=== PATIENT | female | born 2000 | race Caucasian/White ===

== ENCOUNTER 2021-11-02 22:22 | Emergency (ER) | payer OTHER, SELFPAY ==
--- NOTE | 2021-11-02 22:47 | ED.GENADULT ---
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 Patient stated that ever since she turn 14-year-old gets episodes of dizziness and generalized weakness she think she has anemia due to malnutrition. Patient declined any loss of blood, patient get her. Regularly usually stays for 4-5 days no heavy bleeding. Patient otherwise declined any chest pain, SOB, abdominal pain, or visual problems. Related Data Previous Rx's Medication Instructions Recorded ferrous sulfate 325 mg (65 mg 325 mg PO DAILY #14 tabs 11/03/21 iron) tablet meclizine 25 mg tablet 25 mg PO BID PRN dizziness #20 tabs 11/03/21 Allergies Allergy/AdvReac Type Severity Reaction Status Date / Time No Known Allergies Allergy Verified 11/02/21 22:46 Review of Systems Review of Systems: All other systems are reviewed and are negative Constitutional: Reports as per HPI and Reports no additional constitutional complaints Eyes: Reports as per HPI and Reports no additional eye complaints Reports system reviewed and no additional complaints, except as documented Cardiovascular: Reports as per HPI and Reports no additional cardiovascular complaints Respiratory: Reports as per HPI and Reports no additional respiratory complaints Gastrointestinal: Reports as per HPI and Reports no additional gastrointestinal complaints Genitourinary: Reports no additional female genitourinary complaints Musculoskeletal: Reports no additional musculoskeletal complaints Skin/Breast: Reports system reviewed and no additional complaints, except as docu Psychiatric: Reports no additional psychiatric complaints Endocrine: Reports no additional endocrine complaints Hematologic/Lymphatic: Reports no additional hematologic/lymphatic complaints Allergic/Immunologic: Reports no additional allergic/immunologic complaints Reports system reviewed and no additional complaints, except as documented and Reports Abnormal speech present [facility] Social History Social History Alcohol intake: never Patient Tobacco Use Status: Never used Tobacco Use of substances other than those prescribed or required for medical reasons: No Advance Directives: No Advance Directives Information Provided: No Physical Exam ED Vital Signs: Vital Signs - 24 hr 11/02/21 22:55 11/02/21 23:00 Temperature 98.3 F 98.3 F Pulse Rate 93 90 Respiratory Rate 18 18 Blood Pressure 112/80 112/80 Pulse Oximetry 100 100 Oxygen Delivery Method Room Air Room Air BMI result Body Mass Index 22.3 Vital signs have been reviewed as appeared to be correct. Blood pressure normal. Heart rate normal. Respiration rate normal. Temperature normal. Oxygen saturation normal. Appearance: Alert. Oriented X3. No acute distress. Head: Normal external exam. Normocephalic. Atraumatic. No Wolff signs noted. No raccoon eyes noted Eyes: PERRLA. EOMI. Conjunctiva and sclera normal. Eyelids normal. ENT: TM's Normal. Pharynx normal. Uvula midline. Moist mucous membranes. No trismus noted. No drooling noted. No muffled voice noted. Neck: Normal inspection. Neck supple. FROM. No adenopathy. Thyroid Normal. No meningeal signs. No neck mass noted. CVS: Normal heart rate and rhythm. Heart sound normal. No murmurs noted. Pulses normal throughout. Respiratory: No respiratory distress. Painless inspiration. Breath sounds normal. No wheezes/rales/rhonchi noted. Chest nontender. No accessory muscle usage noted or decreased air movement noted. Abdomen: Soft and nontender. Bowel sounds normal in all 4 quadrants. No distention noted. No organomegaly noted. No visible injury noted. Back: No CVA tenderness. Full range of motion noted. Skin: Skin warm and dry. Normal skin color. Normal skin turgor. No rashes/lesions/lacerations noted. Extremities: No lower extremity edema. Extremities exhibit normal range of motion. Extremities nontender. Neuro: Oriented X 3. Cranial nerve exam: II-XII are grossly intact No motor deficit. No sensory deficit. Reflexes normal. Course Course Course Narrative: 21-year-old female came in with symptoms of dizziness and generalized weakness for many years on and off, patient's symptoms could be due to mild anemia patient was instructed to follow-up with his PCP for further management of her anemia. Medical Decision Making Lab Data Lab results reviewed: Yes I reviewed the patient's lab results. Result diagrams: 11/02/21 23:40 11/03/21 00:02 Labs: Lab Results 11/02/21 11/03/21 11/03/21 Range/Units 23:40 00:02 00:42 WBC 12.2 H (4.8-10.8) X10*3/uL RBC 4.49 (4.20-5.50) X10*6/uL Hgb 9.9 L (12.0-16.0) g/dl Hct 33.7 L (37.0-47.0) % MCV 75.1 L (80.0-98.0) fL MCH 22.0 L (27.0-33.0) pg MCHC 29.4 L (31.0-35.0) g/dl RDW 14.9 (11.0-16.0) % Plt Count 436 H (160-400) X10*3/uL MPV 9.8 (9.4-12.3) fL Immature Gran % (Auto) 0.2 (0.0-0.4) % Neut % (Auto) 66.3 (45-73) % Lymph % (Auto) 27.8 (20-40) % [place] % (Auto) 4.8 (2-11) % Eos % (Auto) 0.7 (0-4) % Baso % (Auto) 0.2 (0-2) % Lymph # (Auto) 3.4 (1.2-4.9) X10*3/uL [place] # (Auto) 0.6 (0.1-1.2) X10*3/uL Eos # (Auto) 0.1 (0.0-0.4) X10*3/uL Baso # (Auto) 0.0 (0.0-0.2) X10*3/uL Abs Immat Gran (auto) 0.02 (0.00-0.03) X10*3/uL Absolute Neuts (auto) 8.1 (2.0-8.3) x10*3/uL Absolute Nucleated RBC 0.000 (0.0-0.012) X10*3/uL Nucleated RBC % (auto) 0.0 (0.0-0.2) /100WBC Sodium 140 (135-145) mmol/L Potassium 3.7 (3.3-5.1) mmol/L Chloride 106 (96-108) mmol/L Carbon Dioxide 23 (22-29) mmol/L Anion Gap 15 (12-20) BUN 10 (9-16) mg/dL Creatinine 0.68 (0.5-1.4) mg/dL Estim Creat Clear Calc 113.0 Estimated GFR > 60 Random Glucose 91 (60-115) mg/dL Calcium 9.2 (8.4-10.2) mg/dL Urine Color Yellow Urine Appearance Clear Urine pH 7.0 (5.0-9.0) Ur Specific [place] 1.020 (1.005-1.025) Urine Protein Negative (Neg-Trace) mg/dL Urine Glucose (UA) Negative (Negative) mg/dL Urine Ketones Negative (Negative) mg/dL Urine Blood Negative (Negative) Urine Nitrite Negative (Negative) Ur Leukocyte Esterase Small (1+) H (Negative) Urine RBC 0-2 (0-2) /HPF Urine WBC 6-10 H (0-5) /HPF Ur Squamous Epith Cells 3-5 (0-2) /HPF Urine Bacteria 1+ (None Seen) Hyaline Casts 0-2 (0-2) /LPF Urine Test (NEGATIVE) 11/03/21 Range/Units 00:42 WBC (4.8-10.8) X10*3/uL RBC (4.20-5.50) X10*6/uL Hgb (12.0-16.0) g/dl Hct (37.0-47.0) % MCV (80.0-98.0) fL MCH (27.0-33.0) pg MCHC (31.0-35.0) g/dl RDW (11.0-16.0) % Plt Count (160-400) X10*3/uL MPV (9.4-12.3) fL Immature Gran % (Auto) (0.0-0.4) % Neut % (Auto) (45-73) % Lymph % (Auto) (20-40) % [place] % (Auto) (2-11) % Eos % (Auto) (0-4) % Baso % (Auto) (0-2) % Lymph # (Auto) (1.2-4.9) X10*3/uL [place] # (Auto) (0.1-1.2) X10*3/uL Eos # (Auto) (0.0-0.4) X10*3/uL Baso # (Auto) (0.0-0.2) X10*3/uL Abs Immat Gran (auto) (0.00-0.03) X10*3/uL Absolute Neuts (auto) (2.0-8.3) x10*3/uL Absolute Nucleated RBC (0.0-0.012) X10*3/uL Nucleated RBC % (auto) (0.0-0.2) /100WBC Sodium (135-145) mmol/L Potassium (3.3-5.1) mmol/L Chloride (96-108) mmol/L Carbon Dioxide (22-29) mmol/L Anion Gap (12-20) BUN (9-16) mg/dL Creatinine (0.5-1.4) mg/dL Estim Creat Clear Calc Estimated GFR Random Glucose (60-115) mg/dL Calcium (8.4-10.2) mg/dL Urine Color Urine Appearance Urine pH (5.0-9.0) Ur Specific [place] (1.005-1.025) Urine Protein (Neg-Trace) mg/dL Urine Glucose (UA) (Negative) mg/dL Urine Ketones (Negative) mg/dL Urine Blood (Negative) Urine Nitrite (Negative) Ur Leukocyte Esterase (Negative) Urine RBC (0-2) /HPF Urine WBC (0-5) /HPF Ur Squamous Epith Cells (0-2) /HPF Urine Bacteria (None Seen) Hyaline Casts (0-2) /LPF Urine Test NEGATIVE (NEGATIVE) Discharge Plan Discharge Clinical Impression: Anemia, Vertigo Patient Disposition: Home, Self-Care Instructions: Anemia (ED) Prescriptions: New meclizine 25 mg tablet 25 mg PO BID PRN (Reason: dizziness) Qty: 20 0RF ferrous sulfate 325 mg (65 mg iron) tablet 325 mg PO DAILY Qty: 14 0RF Referrals: Physician,None [Primary Care Provider] -
[2021-11-02 22:55] VITALS: BP 112/80; BP 136/90; PULSE 88; PULSE 93; RESP 18; TEMP 36.8; O2SAT 100; O2SAT 99; BMI 22.3
[2021-11-02 23:00] VITALS: BP 112/80; PULSE 90; RESP 18; TEMP 36.8; O2SAT 100
[2021-11-02] MEDS: Meclizine HCl 25 MG TABLET PO (23:25)
[2021-11-02] MEDS: Acetaminophen 325 MG TABLET 650 MG PO (23:25)
[2021-11-02 23:45] LABS: MANUAL DIFF FLAG NO
[2021-11-02 23:46] LABS: Basophils Percent Auto 0.2 % (0-2); Eosinophils Absolute Auto 0.1 X10*3/uL (0.0-0.4); Eosinophils Percent Auto 0.7 % (0-4); Hematocrit 33.7 % (37.0-47.0); Hemoglobin 9.9 g/dl (12.0-16.0); Imm Gran Abs Auto 0.02 X10*3/uL (0.00-0.03); Imm Gran Pct Auto 0.2 % (0.0-0.4); Lymphocytes Absolute Auto 3.4 X10*3/uL (1.2-4.9); Lymphocytes Percent Auto 27.8 % (20-40); Mean Corpuscular HGB Conc 29.4 g/dl (31.0-35.0); Mean Corpuscular Volume 75.1 fL (80.0-98.0); Mean Platelet Volume 9.8 fL (9.4-12.3); Monocytes Absolute Auto 0.6 X10*3/uL (0.1-1.2); Monocytes Percent Auto 4.8 % (2-11); Neutrophils Absolute Auto 8.1 x10*3/uL (2.0-8.3); Neutrophils Percent Auto 66.3 % (45-73); Platelet Count 436 X10*3/uL (160-400); Red Blood Count 4.49 X10*6/uL (4.20-5.50); Red Cell Distribution Width 14.9 % (11.0-16.0); White Blood Count 12.2 X10*3/uL (4.8-10.8)
[2021-11-03 00:29] LABS: Anion Gap 15 (12-20); Blood Urea Nitrogen 10 mg/dL (9-16); Calcium 9.2 mg/dL (8.4-10.2); Carbon Dioxide 23 mmol/L (22-29); Chloride 106 mmol/L (96-108); Estimated Glomerular Filt Rate > 60; Glucose Random 91 mg/dL (60-115); Potassium 3.7 mmol/L (3.3-5.1); Sodium 140 mmol/L (135-145)
[2021-11-03 00:50] LABS: Appearance Urine Clear; Color Urine Yellow; Glucose Urine UA Negative (Negative); Leukocyte Esterase Urine Small (1+) (Negative); Nitrite Urine Negative (Negative); UMIC TRIGGER UACC YES; Urine Blood Negative (Negative); Urine Ketones Negative (Negative); Urine Protein Negative (Neg-Trace)
[2021-11-03 00:53] LABS: UPreg QC Valid YES; Urine Pregnancy NEGATIVE (NEGATIVE)
[2021-11-03 00:55] LABS: Bacteria Urine 1+ (None Seen); Hyaline Casts Urine 0-2 /LPF (0-2); RBC Urine 0-2 /HPF (0-2); UACC Culture Trigger YES
--- NOTE | 2021-11-03 02:35 | PC.NURSE ---
Upon discharge, pt. stated to this RN that she resides at the [facility] in [place], [place] and that she wasn't sure how to call them or coordinate a ride home. Pt. asked this RN to call the [facility] for her. This RN called and spoke to overnight program manager slp who stated that he will be sending a ride now to come and pick her up.
== END 2021-11-03 03:37 | disposition home or self-care (01) ==
PROVIDERS: Emergency Provider Emergency Medicine
DX: D64.9 Anemia, unspecified (principal); R42 Dizziness and giddiness; R53.1 Weakness
CPT/HCPCS: 36415; 80048; 81001; 81025; 85025; 87086; 99283; 99284

== ENCOUNTER 2022-03-28 16:45 | Emergency (ER) | payer OTHER, SELFPAY ==
[2022-03-28 17:16] VITALS: BP 110/77; PULSE 96; RESP 16; TEMP 36.8; O2SAT 100; BMI 21.2
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
[2022-03-28 18:41] LABS: MANUAL DIFF FLAG NO
[2022-03-28 18:42] LABS: Basophils Absolute Auto 0.1 X10*3/uL (0.0-0.2); Basophils Percent Auto 0.6 % (0-2); Eosinophils Absolute Auto 0.2 X10*3/uL (0.0-0.4); Eosinophils Percent Auto 1.6 % (0-4); Hematocrit 35.4 % (37.0-47.0); Hemoglobin 10.8 g/dl (12.0-16.0); Imm Gran Abs Auto 0.02 X10*3/uL (0.00-0.03); Imm Gran Pct Auto 0.2 % (0.0-0.4); Lymphocytes Absolute Auto 3.1 X10*3/uL (1.2-4.9); Lymphocytes Percent Auto 32.9 % (20-40); Mean Corpuscular HGB Conc 30.5 g/dl (31.0-35.0); Mean Corpuscular Hemoglobin 23.2 pg (27.0-33.0); Mean Corpuscular Volume 76.1 fL (80.0-98.0); Mean Platelet Volume 9.9 fL (9.4-12.3); Monocytes Absolute Auto 0.6 X10*3/uL (0.1-1.2); Monocytes Percent Auto 6.4 % (2-11); Neutrophils Absolute Auto 5.6 x10*3/uL (2.0-8.3); Neutrophils Percent Auto 58.3 % (45-73); Platelet Count 353 X10*3/uL (160-400); Red Blood Count 4.65 X10*6/uL (4.20-5.50); Red Cell Distribution Width 14.7 % (11.0-16.0); White Blood Count 9.5 X10*3/uL (4.8-10.8)
[2022-03-28 18:49] LABS: Appearance Urine Cloudy; Color Urine Yellow; Glucose Urine UA Negative (Negative); Leukocyte Esterase Urine Small (1+) (Negative); Nitrite Urine Negative (Negative); Specific Gravity - Urine >= 1.030 (1.005-1.025); UMIC TRIGGER UACC YES; Urine Blood Negative (Negative); Urine Ketones Trace mg/dL (Negative); Urine Protein Trace mg/dL (Neg-Trace)
[2022-03-28 18:50] LABS: UPreg QC Valid YES; Urine Pregnancy NEGATIVE (NEGATIVE)
[2022-03-28 18:53] LABS: Bacteria Urine 4+ (None Seen); RBC Urine 0-2 /HPF (0-2); UACC Culture Trigger YES
[2022-03-28 19:01] LABS: Alanine Aminotransferase 8 U/L (0-31); Albumin Level 4.4 g/dL (3.5-5.0); Alkaline Phosphatase 68 U/L (39-117); Anion Gap 13 (12-20); Aspartate Amino Transferase 14 U/L (5-31); Bilirubin Direct < 0.2 mg/dL (0.0-0.5); Bilirubin Total 0.2 mg/dL (0.0-1.0); Blood Urea Nitrogen 12 mg/dL (9-16); Calcium 9.5 mg/dL (8.4-10.2); Carbon Dioxide 22 mmol/L (22-29); Chloride 108 mmol/L (96-108); Creatinine Clr Calc Pharmacy 105.2; Estimated Glomerular Filt Rate > 60; Glucose Random 83 mg/dL (60-115); Magnesium 2.1 mg/dL (1.6-2.6); Potassium 4.2 mmol/L (3.3-5.1); Sodium 139 mmol/L (135-145); Total Protein 7.5 g/dL (6.5-8.0)
[2022-03-28 19:14] LABS: HCG Quantitative < 2 mIU/mL
[2022-03-28] MEDS: cefTRIAXone sodium 500 MG, Lidocaine HCl 1 % MPF 1 ML IM (23:09)
[2022-03-28] MEDS: metroNIDAZOLE 500 MG TABLET PO (23:09)
[2022-03-28] MEDS: Doxycycline Monohydrate 100 MG CAPSULE PO (23:09)
[2022-03-28] MEDS: levonorgestreL 1.5 MG TABLET PO (23:22)
--- NOTE | 2022-03-29 02:54 | PC.NURSE ---
SHANNAN Kit picked up by [facility] 03/29/22 0243.
[2022-03-29 03:05] LABS: CT PCR NOT DETECTED (Not Detect.); NG PCR NOT DETECTED (Not Detect.)
[2022-03-29 10:58] LABS: BV Int Neg Control Negative (Negative); BV Int Pos Control Positive (Positive)
[2022-03-30 06:35] LABS: Syphilis Screen Nonreactive (Nonreactive)
[2022-03-30 08:23] LABS: HBS Num1 0.46 mIU/mL (0-7.99); HBc Num1 0.06 S/CO (0.00-0.79); HBsAGNum1 0.26 S/CO (0.00-0.99); HIV AB/AG Nonreactive (Nonreactive); HIV Num 1 0.07 S/CO (0.00-0.99); Hepatitis A Antibody IgM 0.37 Index (0-0.79); Hepatitis B Core Antibody Nonreactive (Nonreactive); Hepatitis B Surface Antigen Negative (Negative); ~HepC Num1 0.08 S/CO (0.00-0.79); ~Hepatitis A Antibody IgM Nonreactive (Nonreactive); ~Hepatitis B Surface Antibody NONREACTIVE (Nonreactive); ~Hepatitis C Antibody Nonreactive (Nonreactive)
== END 2022-03-28 23:26 | disposition home or self-care (01) ==
PROVIDERS: Physician Assistant; Emergency Provider Emergency Medicine
DX: N76.0 Acute vaginitis (principal); T76.21XA Adult sexual abuse, suspected, initial encounter; Z20.2 Contact with and (suspected) exposure to infections with a predominantly sexual mode of transmission; Z79.899 Other long term (current) drug therapy
CPT/HCPCS: 0353U; 36415; 80048; 80076; 81001; 81025; 83735; 84702; 85025; 86704; 86706; 86709; 86780; 86803; 87086; 87088; 87186; 87340; 87389; 87480; 87510; 87660; 96372; 99284; J0696

== ENCOUNTER 2024-11-15 10:01 | Outpatient (AMB) | payer OTHER, SELFPAY ==
[2024-11-15 10:21] VITALS: BP 113/61; PULSE 79; TEMP 36.7; O2SAT 100
--- NOTE | 2024-11-15 10:21 | MHC.PC.OV ---
Vital Signs 11/15/24 10:21 Weight 118 lb BP 113/61 Blood Pressure Location Rt brachial Position Sitting Pulse 79 Pulse Source Pulse Oximeter Temp 98.0 F Temp Source Oral Pulse Oximetry (%) 100 Oxygen Delivery Method Room Air Intake Visit Reasons: ? UTI -rescheduled from 11/07 Accompanied by: Self / Same As Patient Allergies No Known Allergies Allergy (Verified 11/15/24 10:21) Medication List - Last Reconciled 11/15/24 by Chapito Pantoja MD ferrous sulfate 325 mg PO DAILY meclizine 25 mg PO BID PRN Tobacco use date assessed: 11/15/24 Dental Screening Dental Screen Date: 11/15/24 Did you have a dental visit in the last 12 months?: No HPI HPI Comments History of Present Illness Details History of Present Illness The patient is a 24-year-old female presenting with concerns regarding a dislocated intrauterine device (IUD) and associated urinary tract infection. Dislocated Intrauterine Device (IUD): - The patient reports that the IUD was dislocated, which was identified approximately one month ago during a visit to urgent care. - The dislocation led to an infection, and the patient was treated with antibiotics and probiotics. - An ultrasound was performed at [facility] to assess the position of the IUD. Urinary Tract Infection: - The patient experienced a urinary tract infection secondary to the dislocated IUD, as diagnosed at urgent care. - Treatment included antibiotics, and the patient reports no current symptoms of active infection. Review of Systems - Genitourinary: Reports previous urinary tract infection, denies current symptoms of infection. - Reproductive: Reports dislocated IUD, denies active bleeding. 10-point ROS reviewed and negative except as noted in HPI Past Medical History anemia Health Maintenance - Referral to [facility] for IUD management and further evaluation. Physical Exam General: Well-appearing, in no acute distress. Vital signs: Within normal limits. HEENT: Normocephalic, atraumatic. PERRLA, EOMI. Conjunctiva clear, sclera anicteric. Oropharynx clear, mucous membranes moist. TMs intact bilaterally. Neck: Supple, no lymphadenopathy, no thyromegaly, no JVD or carotid bruits. Cardiovascular: RRR, normal S1/S2, no murmurs, rubs, or gallops. Peripheral pulses 2+ and symmetric. No edema. Respiratory: Lungs clear to auscultation bilaterally, no wheezes, rales, or rhonchi. Normal effort. Abdomen: Soft, non-tender, non-distended. Normoactive bowel sounds. No hepatosplenomegaly, no masses. MSK: Full range of motion, no joint swelling or deformity. Normal gait. Skin: Warm, dry, intact. No rashes, lesions, or pallor. Neuro: Alert and oriented x3. Cranial nerves II-XII intact. Strength 5/5 throughout. Sensation intact. Reflexes 2+ symmetric. Normal coordination and gait. Psych: Appropriate mood and affect. Normal judgment and insight. exam deferred Plan 1. Dislocated Intrauterine Device (Iud) - Referral to [facility] for evaluation and management of the dislocated IUD, including potential removal or repositioning. - Ultrasound imaging to assess the current position of the IUD and ensure no perforation of the uterus. 2. Urinary Tract Infection - Monitor for any recurrence of symptoms and ensure completion of antibiotic course. - Follow-up with primary care for any further urinary symptoms. Discussion Notes I discussed with the patient the need for a referral to an [facility] for the management of her dislocated IUD. We talked about the importance of ultrasound imaging to assess the IUD's position and prevent complications such as uterine perforation. I also advised her to monitor for any recurrence of urinary symptoms and to complete her antibiotic course. Follow-up with primary care was recommended to ensure comprehensive care. Patient was informed and verbally consented to the use of an ambient scribefor clinic note documentation during this visit. Patient Instructions - Follow up with [facility] for IUD evaluation and management. - Complete the course of antibiotics as prescribed. - Monitor for any symptoms of urinary tract infection and report them to your primary care provider. -ED instructions provided Total time spent caring for the patient today was 30 minutes. This includes time spent before the visit reviewing the chart, time spent documenting, and time spent reviewing laboratory results, diagnostic imaging, medications, performing a medically necessary evaluation, counseling on diagnoses, care coordination, ordering appropriate tests. [facility] Medical History (Updated 11/15/24 @ 11:04 by Chapito Pantoja MD) IUD mechanical complication Family History (Updated 11/15/24 @ 10:30 by Evette Saucedo CMA) Mother Diabetes Father No problems noted. Social History Housing: Apartment Alcohol intake: never Patient Tobacco Use Status: Never used Tobacco service: No Current occupational status: unemployed Cognitive needs: No Hearing needs: No Vision needs: Yes (rx glasses) Female Reproductive History Menstrual Duration of menses: 6-7 days Date of last menstrual period: 11/09/24 Questionnaire PHQ-9 Over the last 2 weeks, how often have you been bothered by any of the following problems? 1. Little interest or pleasure in doing things: not at all 2. Feeling down, depressed, or hopeless: not at all 3. Trouble falling or staying asleep, or sleeping too much: not at all 4. Feeling tired or having little energy: not at all 5. Poor appetite or overeating: not at all 6. Feeling bad about yourself - or that you are a failure or have let yourself or your family down: not at all 7. Trouble concentrating on things, such as reading the newspaper or watching television: not at all 8. Moving or speaking so slowly that other people could have noticed. Or the opposite - being so fidgety or restless that you have been moving around a lot more than usual: not at all 9. Thoughts that you would be better off or of hurting yourself in some way: not at all Total score: 0 Source: Developed by Drs. Brandon Sanon, Gifty Lopez, Tc Bradshaw and colleagues, with an educational barbara from [employer]. Thrive Questionnaire Date Thrive assessed: 11/15/24 I am a: Patient What is your living situation today?: I have a steady place to live Within the past 12 months, did the food you bought not last and you didn't have the money to get more?: Never true Within the past 12 months, did you worry whether your food would run out before you got money to buy more?: Never true Do you have trouble paying for medicines?: No Do you have trouble getting transportation to medical appointments?: No Do you have trouble paying your heating and electricity bill?: No Do you have trouble taking care of your child, family member or friend?: No Do you have trouble with day-to-day activities such as bathing, preparing meals, shopping, managing finances, etc.?: No Are you currently unemployed and looking for a job?: No Are you interested in more education?: No THRIVE Score: 0 AUDIT C Alcohol Use Questionnaire (AUDIT-C) 1. How often do you have a drink containing alcohol?: Monthly or less Total Score: 1 CESAR-7 AMB Questionnaire CESAR-7 Date CESAR - 7 assessed: 11/15/24 Feeling nervous, anxious, or on edge: 0 = Not at all Not being able to stop or control worryin = Not at all Worrying too much about different things: 0 = Not at all Trouble relaxin = Not at all Being so restless that it is hard to sit still: 0 = Not at all Becoming easily annoyed or irritable: 0 = Not at all Feeling afraid as if something awful might happen: 0 = Not at all Total CESAR-7 score (0-4 normal; 5-9 mild; 10-14 moderate; 15-21 severe): 0 Source: Developed by Drs. Brandon Sanon, Gifty Lopez, Tc Bradshaw and colleagues, with an educational barbara from [employer]. Physical exam (Primary Care) Vital Signs: Last Vital Signs Temp 98.0 F 11/15/24 10:21 Pulse 79 11/15/24 10:21 BP 113/61 11/15/24 10:21 Pulse Ox 100 11/15/24 10:21 Oxygen Delivery Method Room Air 11/15/24 10:21 Tobacco/Smoking Status: Tobacco use Status Tobacco use date assessed 11/15/24 11/15/24 10:31 Patient Tobacco Use Status Never used Tobacco 11/15/24 10:31 PHQ-9: PHQ-9 Score PHQ-9: Total score 0 11/15/24 10:45 Thrive Assessment: Date of Thrive Assessment Date Thrive assessed 11/15/24 11/15/24 10:31 Results AMB Urinalysis Dipstick UR Leukocytes Large Last Edit by Evette Saucedo CMA on 11/15/24 10:49 UR Nitrite Negative Last Edit by Evette Saucedo CMA on 11/15/24 10:49 UR Urobilinogen Normal Last Edit by Evette Saucedo CMA on 11/15/24 10:49 UR Protein Trace Last Edit by Evette Saucedo CMA on 11/15/24 10:49 UR Ph 6.0 Last Edit by Evette Saucedo CMA on 11/15/24 10:49 UR Blood Moderate Last Edit by Evette Saucedo CMA on 11/15/24 10:49 UR Specific [place] 1.025 Last Edit by Evette Saucedo CMA on 11/15/24 10:49 UR Ketone Last Edit by Evette Saucedo CMA on 11/15/24 10:49 UR Bilirubin Last Edit by Evette Saucedo CMA on 11/15/24 10:49 UR Glucose Last Edit by Evette Saucedo CMA on 11/15/24 10:49 Results Reviewed Results Reviewed: Laboratory Last Values Urine pH (Clinic) 6.0 11/15/24 10:46 Specific [place] (Clinic) 1.025 11/15/24 10:46 Ur Protein (Clinic) Trace 11/15/24 10:46 Urine Blood (Clinic) Moderate 11/15/24 10:46 Urine Nitrite Negative 11/15/24 10:46 Urobilinogen (Clinic) Normal 11/15/24 10:46 Leukocyte Esterase (Clinic) Large 11/15/24 10:46 Coding Level of Care Code New Pt Level 4 (30949) Diagnoses IUD mechanical complication T83.39XA History of anemia Z86.2 Urinary tract infection N39.0 Assessment & Plan Assessment & Plan (1) IUD mechanical complication: Code(s): T83.39XA - Other mechanical complication of intrauterine contraceptive device, initial encounter Category: Medical (2) History of anemia: Code(s): Z86.2 - Personal history of diseases of the blood and blood-forming organs and certain disorders involving the immune mechanism (3) Urinary tract infection: Code(s): N39.0 - Urinary tract infection, site not specified Plan Orders: Orders AMB Urinalysis Dipstick Today Z13.9 - Encounter for screening, unspecified US transvaginal Today T83.39XA - Other mechanical complication of intrauterine contraceptive device, initial encounter, Z13.9 - Encounter for screening, unspecified US pelvic complete Today T83.39XA - Other mechanical complication of intrauterine contraceptive device, initial encounter, Z13.9 - Encounter for screening, unspecified Complete Blood Count Auto Diff Today Z13.9 - Encounter for screening, unspecified Hemoglobin A1c Today Z13.9 - Encounter for screening, unspecified Hepatitis C Antibody Today Z13.9 - Encounter for screening, unspecified UA CC w/rflx Micro + Cult Today Z13.9 - Encounter for screening, unspecified Comprehensive Met. Panel Today Z13.9 - Encounter for screening, unspecified Hepatitis B Surface Antibody Today Z13.9 - Encounter for screening, unspecified Hepatitis B Surface Antigen Today Z13.9 - Encounter for screening, unspecified HIV Ab/Ag Today Z13.9 - Encounter for screening, unspecified Lipid Panel Today Z13.9 - Encounter for screening, unspecified TSH reflex Free T4 Today Z13.9 - Encounter for screening, unspecified Vitamin B12 and Folate Today Z13.9 - Encounter for screening, unspecified Vitamin D 1,25 dihydroxy Today Z13.9 - Encounter for screening, unspecified Referrals [facility] Referral T83.39XA - Other mechanical complication of intrauterine contraceptive device, initial encounter
== END 2024-11-15 11:39 | disposition home or self-care (01) ==
LOC: HO.HMCFMS 10:02
PROVIDERS: PCP Student in an Organized Health Care Education/Training Program; Visit Provider Student in an Organized Health Care Education/Training Program
DX: T83.39XA Other mechanical complication of intrauterine contraceptive device, initial encounter (principal); Z86.2 Personal history of diseases of the blood and blood-forming organs and certain disorders involving the immune mechanism; N39.0 Urinary tract infection, site not specified

== ENCOUNTER 2024-11-15 10:01 | Outpatient (REF) | payer OTHER, SELFPAY ==
[2024-11-15 18:25] LABS: MANUAL DIFF FLAG NO
[2024-11-15 18:32] LABS: Hematocrit 33.7 % (37.0-47.0); Hemoglobin 9.5 g/dl (12.0-16.0); Imm Gran Abs Auto 0.01 X10*3/uL (0.00-0.03); Imm Gran Pct Auto 0.2 % (0.0-0.4); Lymphocytes Absolute Auto 2.6 X10*3/uL (1.2-4.9); Mean Corpuscular HGB Conc 28.2 g/dl (31.0-35.0); Mean Corpuscular Hemoglobin 20.6 pg (27.0-33.0); Mean Corpuscular Volume 73.1 fL (80.0-98.0); NRBC Abs Auto 0.000 X10*3/uL (0.0-0.012); NRBC Pct Auto 0.0 /100WBC (0.0-0.2); Platelet Count 512 X10*3/uL (160-400); Red Blood Count 4.61 X10*6/uL (4.20-5.50); White Blood Count 5.8 X10*3/uL (4.8-10.8)
[2024-11-15 18:49] LABS: Alanine Aminotransferase 10 U/L (0-31); Albumin Level 4.9 g/dL (3.5-5.0); Alkaline Phosphatase 61 U/L (39-117); Anion Gap 12 (12-20); Aspartate Amino Transferase 25 U/L (5-31); Blood Urea Nitrogen 8 mg/dL (9-16); Calcium 9.7 mg/dL (8.4-10.2); Carbon Dioxide 25 mmol/L (22-29); Chloride 106 mmol/L (96-108); Cholesterol 172 mg/dL (<200); Estimated Glomerular Filt Rate > 60; HDL Cholesterol 57 mg/dL (>40); Potassium 4.9 mmol/L (3.3-5.1); Sodium 138 mmol/L (135-145); Total Protein 8.0 g/dL (6.5-8.0); Triglycerides 72 mg/dL (<150)
[2024-11-15 19:02] LABS: Appearance Urine Clear; Glucose Urine UA Negative (Negative); PH 6.0 (5.0-9.0); Specific Gravity - Urine 1.025 (1.005-1.025); UMIC TRIGGER UACC YES
[2024-11-15 19:15] LABS: Folate 12.6 ng/mL (> or = 4.0); Vitamin B12 726 pg/mL (200-900)
[2024-11-15 19:19] LABS: UACC Culture Trigger YES
[2024-11-16 08:31] LABS: HBS Num1 2.78 mIU/mL (0-7.99); HBsAGNum1 0.59 S/CO (0.00-0.99); HIV Num 1 0.05 S/CO (0.00-0.99); Hepatitis B Surface Antigen Negative (Negative); ~HepC Num1 0.12 S/CO (0.00-0.79); ~Hepatitis B Surface Antibody NONREACTIVE (Nonreactive); ~Hepatitis C Antibody Nonreactive (Nonreactive)
[2024-11-19 23:28] LABS: VITAMIN D (1,25 OH) D3 49 pg/mL; Vit D (1,25-Dihydroxy) Total 49 pg/mL (18-72); Vitamin D (1,25 OH) D2 <8 pg/mL
== END 2024-11-15 10:02 | disposition home or self-care (01) ==
LOC: HO.HKASLDS 10:01
PROVIDERS: PCP Student in an Organized Health Care Education/Training Program; Visit Provider Student in an Organized Health Care Education/Training Program
DX: T83.39XA Other mechanical complication of intrauterine contraceptive device, initial encounter (principal); Z86.2 Personal history of diseases of the blood and blood-forming organs and certain disorders involving the immune mechanism; Z87.440 Personal history of urinary (tract) infections
CPT/HCPCS: 36415; 80053; 80061; 81001; 81003; 82607; 82652; 82746; 83036; 84443; 85025; 86706; 86803; 87086; 87340; 87389; 99202

== ENCOUNTER 2024-11-15 12:59 | Outpatient (REF) | payer OTHER, SELFPAY ==
--- NOTE | ~2024-11-15 | US_ITS ---
EXAMINATION: US PELVIS TRANSABDOMINAL AND TRANSVAGINAL HISTORY: T83.39XA - Other mechanical complication of intrauterine contraceptive device... COMPARISON: There are no prior studies available for comparison. TECHNIQUE: Transabdominal and endovaginal real-time 2D clay-scale ultrasound was performed. FINDINGS: Uterus: The uterus is normal in size, measuring 6.9 x 4.4 x 4.8 cm. Myometrium has a normal echotexture. No fibroids are identified. Endometrium: The endometrial stripe measures 5 mm in thickness. An IUD is noted in the cervix/lower uterine segment. The tip is approximately 3.2 cm from the uterine fundus. Right ovary: The right ovary measures 6.2 x 5.1 x 6.6 cm. Multiple follicles are noted. There is also a 3.2 cm cystic structure with low-level internal echoes. Left ovary: The left ovary measures 3.4 x 3.1 x 2.5 cm. The left ovary is normal in size and echotexture. Pelvic fluid: none. US/US pelvic and transvaginal IMPRESSION: 1. IUD within the cervix/lower uterine segment with the tip approximately 3.2 cm from the uterine fundus. 2. Probable 3.2 cm hemorrhagic right ovarian cyst. Electronically signed by: Brandon Vallecillo MD 11/15/2024 02:25 PM EDT
== END 2024-11-15 13:00 | disposition home or self-care (01) ==
LOC: HO.US 12:59
PROVIDERS: PCP Student in an Organized Health Care Education/Training Program; Visit Provider Student in an Organized Health Care Education/Training Program
DX: T83.39XA Other mechanical complication of intrauterine contraceptive device, initial encounter (principal)
CPT/HCPCS: 76830; 76856

== ENCOUNTER → 2024-11-15 13:07 | Outpatient (BNV) | payer OTHER, SELFPAY | PROVIDERS: PCP Student in an Organized Health Care Education/Training Program; Visit Provider Radiology Diagnostic Radiology | DX: T83.32XA Displacement of intrauterine contraceptive device, initial encounter (principal); N83.291 Other ovarian cyst, right side | CPT/HCPCS: 76830; 76856 ==

== ENCOUNTER 2024-12-03 11:13 | Outpatient (REF) | payer OTHER, SELFPAY ==
--- OUTSIDE RECORDS SUMMARY | 2024-12-03 18:42 | XMS_ITS | Clinical Summary ---
Author Organization [facility] Address [address] [place] [address] Phone Care Team Providers Care Christmas Bell Ringer Name Role Phone Physician, No Pcp Primary Care Provider Unavaila ble Allergies No known active allergies Medications iron,carbonyl-v itamin C 65 mg iron- 125 mg tablet,delayed release (DR/EC) Take 1 tablet by mouth 1 (one) time each day for 14 days. 14 tablet 10/22/2024 Encounters Date Type Department Care Team Description 10/21/2024 9:00 PM EDT - 10/22/2024 1:[address] [facility] Emergency [address] [place] [address] Yola Irby MD Acute UTI (urinary tract infection) (Primary Dx); Malpositioned IUD, initial encounter; Vaginal bleeding; Chronic anemia Discharge Disposition: Home or Self Care from Last 3 Months Medical History Medical History Date Comments Known health problems: none Social History Tobacco Use Types Packs/Day Years Used Date Smoking Tobacco: Never Assessed Comments Unknown Sex and Gender Information Value Date Recorded Sex Assigned at Not on file Legal Sex Female 5:13 PM EDT Gender Identity Not on file Sexual Orientation Not on file Obstetrics History Last Filed Vital Signs Vital Sign Reading Time Taken Comments Blood Pressure 96/54 10/22/2024 12:34 AM EDT Pulse 78 10/22/2024 12:34 AM EDT Temperature 36.8 C (98.2 F) 10/22/2024 12:34 AM EDT Respiratory Rate 16 10/22/2024 12:34 AM EDT Oxygen Saturation 100% 10/22/2024 12:34 AM EDT Inhaled Oxygen Concentration - - Weight 54.4 kg (120 lb) 10/21/2024 5:29 PM EDT Height 162.6 cm (5' 4 ) 10/21/2024 5:29 PM EDT Body Mass Index 20.6 10/21/2024 5:29 PM EDT Plan of Treatment Health Maintenance Due Date Last Done Comments Gonorrhea/Chlamydia Screening 2000 HPV Vaccines (1 - 3-dose series) 04/13/2015 DTaP,Tdap,and Td Vaccines (1 - Tdap) 04/13/2019 Hepatitis B Vaccines (1 of 3 - 19+ 3-dose series) 04/13/2019 Cervical Cancer Screening: P ap Smear 2021 Depression Screening 02/07/2024 COVID-19 Vaccine ( - 2023-2 5 season) 2024 Influenza Vaccine (#1) 2024 HIV Screening 10/21/2024 Hepatitis C Screening 10/21/2024 Social Influencers of Health Screening 10/21/2024 RSV Immunization Adult Patie nts (1 - 1-dose 75+ series) 04/13/2075 HIB Vaccines Aged Out No longer eligi ble based on patient's age to complete this topic Hepatitis A Vaccines Aged Out No long er eligible based on patient's age to complete this topic IPV Vaccines Aged Out No longer eligi ble based on patient's age to complete this topic MMR Vaccines Aged Out No longer eligi ble based on patient's age to complete this topic Meningococcal ACWY Vaccine Aged Out N o longer eligible based on patient's age to complete this topic Meningococcal B Vaccine Aged Out No l onger eligible based on patient's age to complete this topic Pneumococcal Vaccine: Pediat rics (0 to 5 Years) and At-Risk Patients (6 to 49 Years) Aged Out No longer eligible b ased on patient's age to complete this topic RSV Immunization Patients Un ryan 20 months Aged Out No longer eligible b ased on patient's age to complete this topic Varicella Vaccines Aged Out No longer eligible based on patient's age to complete this topic Procedures Procedure Name Priority Date/Time Associated Diagnosis Comments US PELVIS NON OB COMPLETE W TRANSVAGINAL STAT 10/21/2024 11:17 PM EDT POC , URINE DIAGNOSTIC STAT 10/21/2024 10:28 PM EDT SCHULER URINE CULTURE TUBE STAT 10/21/2024 10:27 PM EDT URINALYSIS WITH REFLEX MICROSCOPIC AND CULTURE STAT 10/21/2024 10:27 PM EDT URINALYSIS WITH REFLEX MICROSCOPIC AND CULTURE STAT 10/21/2024 10:27 PM EDT CULTURE URINE STAT 10/21/2024 10:27 PM EDT CBC WITH AUTO DIFFERENTIAL STAT 10/21/2024 6:25 PM EDT COMPREHENSIVE METABOLIC PANEL STAT 10/21/2024 6:25 PM EDT CBC AND DIFFERENTIAL STAT 10/21/2024 6:25 PM EDT from Last 3 Months Results * US Pelvis Non OB Complete w Transvaginal (10/21/2024 11:17 PM EDT) Anatomical Region Laterality Modality Body, Pelvis Ultrasound 10/22/2024 12:4 4 AM EDT Addenda Addendum by Gerard Mckinnon MD PhD on 10/22/2024 12:51 AM EDT ADDENDUM: Receipt of this report by the clinical staff was confirmed with Yola Eden MD on Oct 22, 2024 00:50:00 EDT. This document has been electronically signed by: Enrrique Elizondo on 10/22/2024 00:51:07 Impressions 10/22/2024 12:44 AM EDT 1. Malpositioned IUD. IUD in the lower uterine segment and cervical canal. One of the arms of the IUD may be extraluminal. Please correlate clinically. 2. Multiple simple and complex cystic areas throughout the enlarged right ovary. 3. No evidence of ovarian torsion This document has been electronically signed by: Gerard Mckinnon MD, PHD on 10/22/2024 00:44:12 Narrative 10/22/2024 12:44 AM EDT INDICATION: OTHER US pelvis transabdominal and transvaginal with Doppler Comparison: None provided Findings: Transabdominal scanning performed for overall anatomy. Transvaginal scanning performed for additional detail. Anteverted uterus is 8.3 cm length. Normal myometrium. Endometrium 9 mm thickness. An IUD is in the lower uterine segment and cervical canal. One of the arms of the IUD may be extraluminal. Right ovary 6 x 5 x 6 cm. Multiple simple and complex cystic areas are present within the right ovary. Left ovary 3.9 x 2.8 x 3.4 cm. Normal color Doppler with arterial/venous spectral tracing of both ovaries. No free fluid. Procedure Note Gerard Mckinnon MD PhD - 10/22/2024 INDICATION: OTHER US pelvis transabdominal and transvaginal with Doppler Comparison: None provided Findings: Transabdominal scanning performed for overall anatomy. Transvaginal scanning performed for additional detail. Anteverted uterus is 8.3 cm length. Normal myometrium. Endometrium 9 mm thickness. An IUD is in the lower uterine segment and cervical canal. One of thearms of the IUD may be extraluminal. Right ovary 6 x 5 x 6 cm. Multiple simple and complex cystic areas are present within the right ovary. Left ovary 3.9 x 2.8 x 3.4 cm. Normal color Doppler with arterial/venous spectral tracing of both ovaries. No free fluid. IMPRESSION: 1. Malpositioned IUD. IUD in the lower uterine segment and cervicalcanal. One of the arms of the IUD may be extraluminal. Please correlate clinically. 2. Multiple simple and complex cystic areas throughout the enlargedright ovary. 3. No evidence of ovarian torsion This document has been electronically signed by: Gerard Mckinnon MD, PHD on 10/22/2024 00:44:12 us Yola Irby MD [facility] US PROCEDURES Edited Result - Final * POC , urine manually resulted (10/21/2024 10:28 PM EDT) HCG, Ur POC Negative Negative LOT NUMBER POC [id number] Urine Urine specimen obtained by clean catch procedure / Unknown 10/21/2024 10:28 PM EDT Yola Irby MD POINT OF CARE TEST ENTER/EDIT OR DERABLES Final Result * (ABNORMAL) Urinalysis with reflex microscopic and culture (10/21/2024 10:27 PM EDT) Specific Maury Urine 1.026 1.003 - 1.030 LAB URINALYSIS - AUTOMATED METHOD 10/21/2024 10:47 PM [facility] pH, Urine 6.0 5.0 - 8.0 pH LAB URINALYSIS - AUTOMATED METHOD 10/21/2024 10:47 PM [facility] Leukocytes, Urine Moderate(A) Negative LAB URINALYSIS - AUTOMATED METHOD 10/21/2024 10:47 PM [facility] Nitrite, Urine Negative Negative LAB URINALYSIS - AUTOMATED METHOD 10/21/2024 10:47 PM [facility] Protein, Urine 30(A) <=Trace mg/dL LAB URINALYSIS - AUTOMATED METHOD 10/21/2024 10:47 PM [facility] Glucose, Urine Negative Negative mg/dL LAB URINALYSIS - AUTOMATED METHOD 10/21/2024 10:47 PM [facility] Ketones, Urine Trace(A) Negative mg/dL LAB URINALYSIS - AUTOMATED METHOD 10/21/2024 10:47 PM [facility] Urobilinogen , Urine 1.0 0.2 - 1.0 mg/dL LAB URINALYSIS - AUTOMATED METHOD 10/21/2024 10:47 PM [facility] Bilirubin, Urine Negative Negative LAB URINALYSIS - AUTOMATED METHOD 10/21/2024 10:47 PM [facility] Blood, Urine Large(A) Negative LAB URINALYSIS - AUTOMATED METHOD 10/21/2024 10:47 PM [facility] RBC, Urine 35.4(H) 0 - 4 /HPF LAB URINALYSIS - AUTOMATED METHOD 10/21/2024 10:47 PM EDT [facility] WBC, Urine 71.0(H) 0 - 4 /HPF LAB URINALYSIS - AUTOMATED METHOD 10/21/2024 10:47 PM EDT [facility] Squamous Epithelial, Urine 19 0 - 60 /LPF LAB URINALYSIS - AUTOMATED METHOD 10/21/2024 10:47 PM EDT [facility] Bacteria, Urine Negative Negative /HPF LAB URINALYSIS - AUTOMATED METHOD 10/21/2024 10:47 PM EDT [facility] Hyaline Casts, Urine 9.6(H) 0 - 3 /LPF LAB URINALYSIS - AUTOMATED METHOD 10/21/2024 10:47 PM EDT [facility] Urine Urine specimen obtained by clean catch procedure / Unknown Non-blood Collection / Unknown 10/21/2024 10:27 PM EDT 10/21/2024 10:35 PM EDT us Yola Irby MD LAB URINE ORDERABLES Final Resul t Performing Organization Address [facility]/ZIP Co de Phone Number [facility] [address] [place] [address], [place] [phone] * Schuler urine culture tube (10/21/2024 10:27 PM EDT) Extra Tube Hold for add-ons. 10/22/2024 12:01 AM EDT [facility] Comment:Auto resulted. Urine Urine specimen obtained by clean catch procedure / Unknown Non-blood Collection / Unknown 10/21/2024 10:27 PM EDT 10/21/2024 10:35 PM EDT us Yola Irby MD LAB URINE ORDERABLES Final Resul t Performing Organization Address [facility]/ZIP Co de Phone Number [facility] [address] [place] [address], [place] [phone] * Culture urine (10/21/2024 10:27 PM EDT) Pathologist [facility] Culture, Urine <10,000 CFU/mL gram positive cocci, insignificant count, no further workup 10/22/2024 1:34 PM EDT [facility] Urine Urine specimen obtained by clean catch procedure / Unknown Non-blood Collection / Unknown 10/21/2024 10:27 PM EDT 10/21/2024 10:47 PM EDT us Yola Irby MD LAB MICROBIOLOGY - GENERAL ORDER LORY Final Result [facility] [address] [place] [address], * (ABNORMAL) CBC auto differential (10/21/2024 6:25 PM EDT) [facility] WBC 6.4 4.8 - 10.8 K/mcL LAB HEMETOLOGY METHOD [facility]24 [facility] RBC 4.50 3.80 - 4.80 M/mcL LAB HEMETOLOGY METHOD 10/21/2024 7:[facility] Hemoglobin 9.0(L) 11.5 - 16.0 g/dL LAB HEMETOLOGY METHOD 10/21/2024 7:[facility] Hematocrit 31.6(L) 35.0 - 47.0 % LAB HEMETOLOGY METHOD 10/21/2024 7:[facility] MCV 70.2(L) 79.0 - 98.0 FL LAB HEMETOLOGY METHOD 10/21/2024 7:05 PM [facility] MCH 20.0(L) 27.0 - 32.0 pcg LAB HEMETOLOGY METHOD 10/21/2024 7:05 PM [facility] MCHC 28.5(L) 32.0 - 37.0 g/dL LAB HEMETOLOGY METHOD 10/21/2024 7:05 PM [facility] RDW 17.3(H) 11.0 - 15.0 % LAB HEMETOLOGY METHOD 10/21/2024 7:05 PM [facility] Platelets 374 130 - 400 K/mcL LAB HEMETOLOGY METHOD 10/21/2024 7:05 PM [facility] MPV 10.1 7.0 - 11.0 FL LAB HEMETOLOGY METHOD 10/21/2024 7:05 PM [facility] NRBC 0.0 <1.0 % LAB HEMETOLOGY METHOD 10/21/2024 7:05 PM [facility] NRBC Absolute 0.00 <0.10 K/mcL LAB HEMETOLOGY METHOD 10/21/2024 7:05 PM [facility] Neutrophils Relative 46.2 % LAB HEMETOLOGY METHOD 10/21/2024 7:05 PM [facility] Lymphocytes Relative 45.0 % LAB HEMETOLOGY METHOD 10/21/2024 7:05 PM [facility] Monocytes Relative 6.1 % LAB HEMETOLOGY METHOD 10/21/2024 7:05 [facility] Eosinophils Relative 1.7 % LAB HEMETOLOGY METHOD 10/21/2024 7:05 PM [facility] Basophils Relative 0.8 % LAB HEMETOLOGY METHOD 10/21/2024 7:05 PM [facility] Immature Granulocytes Relative 0.2 % LAB HEMETOLOGY METHOD 10/21/2024 7:05 PM [facility] Neutrophils Absolute 2.95 1.50 - 7.00 K/mcL LAB HEMETOLOGY METHOD 10/21/2024 7:05 PM [facility] Lymphocytes Absolute 2.87 1.00 - 5.00 K/mcL LAB HEMETOLOGY METHOD 10/21/2024 7:05 PM EDT [facility] Monocytes Absolute 0.39 0.20 - 1.00 K/[facility] LAB HEMETOLOGY METHOD 10/21/2024 7:05 PM EDT [facility] Eosinophils Absolute 0.11 0.00 - 0.50 K/[facility] LAB HEMETOLOGY METHOD 10/21/2024 7:05 PM EDT [facility] Basophils Absolute 0.05 0.00 - 0.20 K/[facility] LAB HEMETOLOGY METHOD 10/21/2024 7:05 PM EDT [facility] Immature Granulocytes Absolute 0.01 0.00 - 0.03 K/[facility] LAB HEMETOLOGY METHOD 10/21/2024 7:05 PM EDT [facility] Blood Venous blood specimen / Unknown Venipuncture / Unknown 10/21/2024 6:25 PM EDT 10/21/2024 6:59 PM EDT us Yola Irby MD LAB BLOOD ORDERABLES Final Resul t [facility] [address] [place] [address], * Comprehensive metabolic panel (10/21/2024 6:25 PM EDT) Sodium 136 133 - 145 mmol/L LAB CHEMISTRY METHOD 10/21/2024 7:27 PM EDT [facility] Potassium 4.0 3.5 - 5.5 mmol/L LAB CHEMISTRY METHOD 10/21/2024 7:27 PM EDT [facility] Chloride 104 96 - 110 mmol/L LAB CHEMISTRY METHOD 10/21/2024 7:27 PM EDT [facility] CO2 28 21 - 32 mmol/L LAB CHEMISTRY METHOD 10/21/2024 7:27 PM EDT [facility] Anion Gap 4 3 - 11 LAB CHEMISTRY METHOD 10/21/2024 7:27 PM [facility] Glucose 74 70 - 100 mg/dL LAB CHEMISTRY METHOD 10/21/2024 7:27 PM [facility] BUN 9 5 - 25 mg/dL LAB CHEMISTRY METHOD 10/21/2024 7:27 PM [facility] Creatinine 0.59 0.50 - 1.10 mg/dL LAB CHEMISTRY METHOD 10/21/2024 7:27 PM [facility] eGFR 129 >=60 mL/min/1. 73m2 LAB CHEMISTRY METHOD 10/21/2024 7:27 PM [facility] Comment:Calculation based on the Chronic Kidney Disease Epidemiology Collaboration (CKD-EPI) equation refit without adjustment for race. BUN/Creatinine Ratio 15.3 LAB CHEMISTRY METHOD 10/21/2024 7:27 PM [facility] Calcium 9.5 8.5 - 10.5 mg/dL LAB CHEMISTRY METHOD 10/21/2024 7:27 PM [facility] AST (SGOT) 12 10 - 42 unit/L LAB CHEMISTRY METHOD 10/21/2024 7:27 PM [facility] ALT (SGPT) 12 10 - 60 unit/L LAB CHEMISTRY METHOD 10/21/2024 7:27 PM [facility] Alkaline Phosphatase 63 42 - 121 unit/L LAB CHEMISTRY METHOD 10/21/2024 7:27 PM [facility] Total Protein 7.6 6.0 - 8.0 g/dL LAB CHEMISTRY METHOD 10/21/2024 7:27 PM [facility] Albumin 4.1 3.2 - 5.0 g/dL LAB CHEMISTRY METHOD 10/21/2024 7:27 PM [facility] Total Bilirubin 0.5 0.0 - 1.4 mg/dL LAB CHEMISTRY METHOD 10/21/2024 7:[address] [facility] Blood Venous blood specimen / Unknown Venipuncture / Unknown 10/21/2024 6:25 PM EDT 10/21/2024 6:59 PM EDT us Yola Irby MD LAB BLOOD ORDERABLES Final Resul t [facility] [address] [place] [address], [place] [phone] from Last 3 Months Insurance MEDICAID - [place] Care Teams Christmas Bell Ringer Relationship Specialty Start Date End Date Physician, No Pcp PCP - General 10/21/24
[2024-12-04 04:53] LABS: Bacterial Vaginosis PCR NEGATIVE (Negative); Candida Group PCR NOT DETECTED (Not Detect); Candida glab krusei PCR NOT DETECTED (Not Detect); Trichomonas vaginalis PCR NOT DETECTED (Not Detect)
[2024-12-04 05:09] LABS: CT PCR NOT DETECTED (Not Detect.); NG PCR NOT DETECTED (Not Detect.)
== END 2024-12-03 11:14 | disposition home or self-care (01) ==
LOC: HO.LNP 11:13
PROVIDERS: PCP Student in an Organized Health Care Education/Training Program; Visit Provider Advanced Practice Midwife
DX: N83.209 Unspecified ovarian cyst, unspecified side (principal); Z11.3 Encounter for screening for infections with a predominantly sexual mode of transmission; Z92.0 Personal history of contraception
CPT/HCPCS: 81515; 87491; 87591; 99202

== ENCOUNTER 2024-12-03 11:13 | Outpatient (AMB) | payer OTHER, SELFPAY ==
--- NOTE | 2024-12-03 11:17 | A.OFFVIS_ITS ---
Vital Signs 12/03/24 11:21 Height 5 ft 4 in Weight 118 lb BMI 20.3 BP 102/58 L Intake Visit Reasons: Ovary pain [facility] P[facility] Consultant: [facility] Pric[facility] Consultant Present (Callie) Accompanied by: Self / Same As Patient Allergies No Known Allergies Allergy (Verified 12/03/24 11:19) Medication List - Last Reconciled 12/03/24 by Margo Aranda CNM ferrous sulfate 325 mg PO DAILY HPI HPI Ovary pain: Details: Patient was on the schedule today as a an IUD complication but the visit got change to questione ovary pain . Patient had seen her primary care provider with pain on her side in early November an ultrasound was done which ascertained that a an IUD was low lying in her uterus it was a holiday when this office was closed and she was sent to [facility] for management and she was seen in the emergency room there and they examined her did another ultrasound and lab tests and removed her IUD.. She said it was a T IUD that she had had since 2019 that was inserted in [place]. She got her regular period with it. She is not sexually active for the last year and so she does not need another method of control at the moment. She said her last period lasted about 3 days and it was sometime before the episode of pain which prompted the visit to check on the IUD and then the subsequent removal. [facility] Medical History IUD mechanical complication Family History Mother Diabetes Father No problems noted. Social History Housing: Apartment Alcohol intake: never Patient Tobacco Use Status: Never used Tobacco service: No Current occupational status: unemployed Cognitive needs: No Hearing needs: No Vision needs: Yes (rx glasses) Female Reproductive History Menstrual Age of Menarche: 14 Duration of menses: 6-7 days Date of last menstrual period: 11/09/24 control method: none Total pregnancies: 0 Physical Exam Vital Signs: Last Vital Signs BP 102/58 L 12/03/24 11:21 BMI result Body Mass Index 20.3 Other: External exam within normal limits vagina is pink and moist nulliparous cervix pink smooth bled slightly with blade of speculum touching it. No abnormal discharge swabs taken for gonorrhea chlamydia trichomoniasis bacterial vaginosis and yeast. Cervix is long close thick mobile nontender uterus is either midposition or retroverted retroflexed. (versus palpable hard stool in descending colon). Adnexa is not enlarged and nontender patient is not tender on exam though she cites the pain that she had had as being on her right side. Fair tone with Kegel. External Female Exam: normal external appearance Speculum Exam - Vagina: normal appearance of the vagina and normal vaginal discharge Speculum Exam - Cervix: normal appearance of the cervix Bimanual exam- vagina & uterus: normal bimanual exam, uterine size normal, consistency normal, uterine mobility normal, uterine shape normal and non-tender Bimanual Exam- Adnexa, other: normal adnexae, no masses and No adnexal tenderness Results Reviewed Results Reviewed: [address] [address] Ultrasound Report Signed Patient: Deanne Watkins MR#: [id number] : 2000 Acct:[id number] Age/Sex: 24 / F ADM Date: 11/15/24 Loc: HO.US Attending Dr: Chapito Pantoja MD Ordering Physician: Chapito Pantoja MD Date of Service: 11/15/24 Procedure(s): US pelvic and transvaginal Accession Number(s): [id number] cc: Chapito Pantoja MD~ Reason for Exam: T83.39XA - Other mechanical complication of intrauterine contraceptive d... EXAMINATION: US PELVIS TRANSABDOMINAL AND TRANSVAGINAL HISTORY: T83.39XA - Other mechanical complication of intrauterine contraceptive device... COMPARISON: There are no prior studies available for comparison. TECHNIQUE: Transabdominal and endovaginal real-time 2D clay-scale ultrasound was performed. FINDINGS: Uterus: The uterus is normal in size, measuring 6.9 x 4.4 x 4.8 cm. Myometrium has a normal echotexture. No fibroids are identified. Endometrium: The endometrial stripe measures 5 mm in thickness. An IUD is noted in the cervix/lower uterine segment. The tip is approximately 3.2 cm from the uterine fundus. Right ovary: The right ovary measures 6.2 x 5.1 x 6.6 cm. Multiple follicles are noted. There is also a 3.2 cm cystic structure with low-level internal echoes. Left ovary: The left ovary measures 3.4 x 3.1 x 2.5 cm. The left ovary is normal in size and echotexture. Pelvic fluid: none. US/US pelvic and transvaginal IMPRESSION: 1. IUD within the cervix/lower uterine segment with the tip approximately 3.2 cm from the uterine fundus. 2. Probable 3.2 cm hemorrhagic right ovarian cyst. Electronically signed by: Brandon Vallecillo MD 11/15/2024 02:25 PM EDT RP Dictated By: Brandon Vallecillo MD Signed By: <Electronically signed by Brandon Vallecillo MD in OV> 11/15/24 1425 DD/ 1338 Assessment & Plan Assessment & Plan (1) Ovarian cyst: Comment: Noted on 11/15/2024 ultrasound [facility]. IUDs since removed We will reassess in 2- 3 .months and follow-up. Code(s): N83.209 - Unspecified ovarian cyst, unspecified side Category: Medical (2) Screen for sexually transmitted diseases: Code(s): Z11.3 - Encounter for screening for infections with a predominantly sexual mode of transmission Category: Medical (3) History of use of contraceptive intrauterine device (IUD): Comment: Says it was placed in [place] in 2019 removed at [facility] on 2024 secondary to low lying.... Code(s): Z92.0 - Personal history of contraception Category: Medical Plan Patient was on the schedule today as a an IUD complication but the visit got change to questione ovary pain . Patient had seen her primary care provider with pain on her side in early November an ultrasound was done which ascertained that a an IUD was low lying in her uterus it was a holiday when this office was closed and she was sent to [facility] for management and she was seen in the emergency room there and they examined her did another ultrasound and lab tests and removed her IUD.. She said it was a T IUD that she had had since 2019 that was inserted in [place]. She got her regular period with it. She is not sexually active for the last year and so she does not need another method of control at the moment. She said her last period lasted about 3 days and it was sometime before the episode of pain which prompted the visit to check on the IUD and then the subsequent removal. Exam done which was benign uterus is either retroverted/retroflexed or there is hard stool in descending colon. Testing for STIs done. Will reassess cystic structure noted on ultrasound with repeat ultrasound in 2-3 months after she has had 2-3 cycles and reassess at the next visit and do her annual exam and 1st Pap smear. Patient did not have any other questions. She does not think she will need any method of control as she is not anticipating being or becoming sexually active any time in the near future. Orders: Orders US pelvic and transvaginal Today N83.209 - Unspecified ovarian cyst, unspecified side, Z11.3 - Encounter for screening for infections with a predominantly sexual mode of transmission Coding Level of Care Code New Pt Level 3 (94683) Diagnoses Ovarian cyst N83.209 Screen for sexually transmitted diseases Z11.3 History of use of contraceptive intrauterine device (IUD) Z92.0
[2024-12-03 11:21] VITALS: BP 102/58; BMI 20.3
== END 2024-12-03 13:07 | disposition home or self-care (01) ==
LOC: HO.HWSM 11:13
PROVIDERS: PCP Student in an Organized Health Care Education/Training Program; Visit Provider Advanced Practice Midwife
DX: N83.209 Unspecified ovarian cyst, unspecified side (principal); Z11.3 Encounter for screening for infections with a predominantly sexual mode of transmission; Z92.0 Personal history of contraception
CPT/HCPCS: 99203